=== PATIENT | male | born 1995 | race Hispanic/Latino ===

== ENCOUNTER 2020-09-26 15:17 | Emergency (ER) | payer SELFPAY ==
[~2020-09-26] VITALS: Ht 167.6 cm; Wt 77.1 kg
== END 2020-09-26 16:18 | disposition home or self-care (01) ==
LOC: ER 16:16
DX: R19.7 Diarrhea, unspecified (principal); R11.2 Nausea with vomiting, unspecified; R10.9 Unspecified abdominal pain; R51.9 Headache, unspecified
CPT/HCPCS: 99282